=== PATIENT | male | born 1965 | race Caucasian/White ===

== ENCOUNTER 2021-03-23 16:33 | Emergency (ER) | payer OTHER ==
[~2021-03-23] VITALS: Ht 180.3 cm; Wt 97.5 kg
[2021-03-23 16:38] VITALS: BP 131/95
[2021-03-23] MEDS ORDERED: METHOCARBAMOL500 M2 PO (18:33)
[2021-03-23] MEDS ORDERED: NORCO5 PO (18:33)
[2021-03-23] MEDS ORDERED: AUGMENTIN 875-1 EACH PO (18:33)
== END 2021-03-23 18:47 | disposition home or self-care (01) ==
LOC: ER 16:33
DX: S01.21XA Laceration without foreign body of nose, initial encounter (principal); R10.9 Unspecified abdominal pain; V89.2XXA Person injured in unspecified motor-vehicle accident, traffic, initial encounter; Y93.89 Activity, other specified; Y92.89 Other specified places as the place of occurrence of the external cause; Y99.8 Other external cause status